=== PATIENT | male | born 1930 | race Caucasian/White ===

== ENCOUNTER 2018-04-14 00:28 | Observation (INO) ==
[2018-04-14 07:12] LABS: Basophils % 0.5 %; Eosinophils # 0.4 K/mcL (0.0-0.6); Eosinophils % 4.2 %; Hematocrit 33.8 % (37.5-50.1); Hemoglobin 11.7 g/dL (12.9-16.9); Immature Granulocytes % 0.2 % (0-4); Lymphocytes # 1.9 K/mcL (0.6-4.6); Lymphocytes % 22.7 %; Mean Corpuscular HGB Conc 34.6 g/dL (31.6-35.5); Mean Corpuscular Hemoglobin 31.6 pg (28.0-33.3); Mean Corpuscular Volume 91.4 fL (83.0-100.0); Mean Platelet Volume 9.7 fL (9.4-12.4); Monocytes # 0.9 K/mcL (0.0-1.3); Monocytes % 10.6 %; Neutrophils # 5.3 K/mcL (1.6-8.9); Platelet Count 156 K/mcL (140-400); Red Cell Distribution Width 12.3 % (11.5-14.5); Segmented Neutrophils % 61.8 %
[2018-04-14 07:21] LABS: BUN/Creatinine Ratio 17 (6-26); Blood Urea Nitrogen 15 mg/dL (8-23); Carbon Dioxide 30 mEq/L (23-29); Chloride 103 mEq/L (98-107); Glucose 110 mg/dL (70-105); Osmolality,Calculated 287 (280-300); Potassium 3.4 mEq/L (3.5-5.1); Sodium 138 mEq/L (136-145); eGFR For Non-African Americans > 60 (> 60)
[2018-04-14] MEDS ORDERED: Naloxone 0.4 MG/ML INJ IVP PRN (08:04)
--- NOTE | 2018-04-14 08:16 | Internal Med History&Physical ---
Date of Encounter: 04/14/18 Time of Encounter: 08:08 Internal Medicine - H&P: HPI Chief complaint: Lt flank pain Admitted From: Home Plans for Post Hospital Care: Home History of present illness: Mr. Werner is a 87 year old male with past medical history of hypertension, hyperlipidemia, nephrolithiasis, CVA with right-sided weakness 5 years ago came in with complaint of left-sided flank pain starting yesterday morning. Pain was severe intensity started suddenly described as 10 x 10 in intensity and most severe pain he ever had. He went to ER had Leonel and cause found to have left UVJ 2 mm stone as well as some free air in the abdomen. He received IV fluids and pain medication after which his pain resolved. He did feel that he might have passed stone and the pain has not recurred. He received about 500 mL of fluids as well as pain medication per . Patient was transferred for further care with urology and evaluate evaluate free air. On interview this morning patient without any pain. Currently only mild soreness on the left side where he had pain. He did not feel the pain coming from the flank to his groin region and now the pain has resolved. Denies any fever or chills, nausea vomiting or maisha hematuria. He has had 2 episodes of kidney stone in past. Denies any chest pain, shortness of breath, leg swelling, constipation or diarrhea or difficulty passing urine. He does have a bowel m ovement every 2-3 days at his baseline with the last bowel movement on Thursday. Past Med Surg Social Fam HX - Past Medical History Medical history: arthritis, CVA, GERD, hyperlipidemia, hypertension, kidney stones Psychiatric history: no psych history - Past Surgical History Surgical History: carotid endarterectomy, herniorrhaphy - Social History Smoking Status: Never smoker Smokeless Tobacco Status: No Alcohol use: none Drug use: opiates - Additional Family History Additional family history: No significant family history in parent and in sibling. Internal Medicine - H&P: Meds Amlodipine Besylate 5 mg PO DAILY 04/14/18 [History] Aspirin 81 mg PO DAILY 04/14/18 [History] Clopidogrel [Plavix] 75 mg PO DAILY 04/14/18 [History] Cyanocobalamin (Vitamin B-12) [Vitamin B12] 500 mcg PO DAILY 04/14/18 [History] Famotidine [Pepcid] 20 mg PO BID 04/14/18 [History] Meloxicam 15 mg PO DAILY 04/14/18 [History] Occuvite 1 tab PO DAILY 04/14/18 [History] Oxycodone HCl/Acetaminophen [Percocet 10-325 mg Tablet] 1 tab PO BID 04/14/18 [History] Rosuvastatin Calcium [Crestor] 10 mg PO DAILY 04/14/18 [History] Allergy/AdvReac Type Severity Reaction Status Date / Time No Known Allergies Allergy Verified 04/14/18 02:32 All Systems PM: A 10-system review of systems was performed and is negative for pertinent findin gs except as documented above in the HPI. - Constitutional Vitals: Temp Pulse Resp BP Pulse Ox 98.8 F 70 16 141/74 93 04/14/18 07:35 04/14/18 07:35 04/14/18 07:35 04/14/18 07:35 04/14/18 07:35 Exam: Constitutional: Vitals as noted. Conversant. No Apparent Distress. Eyes : Sclera white, conjunctiva clear, no lid lag, PEARLA. ENT : Grossly normal hearing. Oropharyngeal exam unremarkable. Moist mucus membranes. No JVD, no cervical lymphadenopathy. no thyromegaly or mass. Respiratory : Clear to auscultation bilaterally. No accessory muscle use, rales, rhonchi or wheezes Cardiovascular : RRR, +S1, +S2. no murmur, gallop, rubs. No chest wall tenderness. pulses palpable and symmetrical in UE/LE. GI/Abdominal : Soft, minimal tenderness on LUQ, Non-distended, normal bowel sounds, soft, no peritoneal signs. no orgenomegaly or mass appreciated. no hernia. Musculoskeletal: no deformity noted. no edema or cyanosis. warm extremities, no calf tenderness. Neurological: AO X3, CN II-XII grossly intact, Minimal weakness on Rt compared to Lt UE/LE. Skin: No skin rash, lesions or ulcers noted. Pych: Good insight and judgement. Intact memory. AOx3. Internal Med - H&P Results - Labs CBC & Chem 7: 04/14/18 06:51 04/14/18 06:51 Labs: Short CBC 04/14/18 Range/Units 06:51 WBC 8.6 (4.3-11.1) K/mcL Hgb 11.7 L (12.9-16.9) g/dL Hct 33.8 L (37.5-50.1) % Plt Count 156 (140-400) K/mcL Neutrophils # 5.3 (1.6-8.9) K/mcL BMP 04/14/18 06:51 Sodium 138 Potassium 3.4 L Chloride 103 Carbon Dioxide 30 H BUN 15 Creatinine 0.90 Glucose 110 H Calcium 9.0 - Assessment and plan (1) Nephrolithiasis Current Visit: Yes Status: Acute Assessment and plan: 2 mm left UVJ stone on the CAT scan - Patient appears clinically to have passed a stone - Continue IV fluids and pain control - Creatinine trended down from 1.38 to 0.9 - We will follow-up CT ordered for evaluating free air whether stone is still present. - Urology consulted. (2) HTN (hypertension) Current Visit: Yes Status: Acute Assessment and plan: - Currently reasonably controlled - We will resume home medications once able to take by mouth. - If needed will give IV labetalol for sbp >160. Qualifiers: Hypertension type: essential hypertension Qualified Code(s): I10 - Essential (primary) hypertension (3) History of CVA (cerebrovascular accident) Current Visit: Yes Status: Chronic (4) Hyperlipemia Current Visit: Yes Status: Acute Assessment and plan: - Continue home statin when able to Qualifiers: Hyperlipidemia type: unspecified Qualified Code(s): E78.5 - Hyperlipidemia, unspecified (5) Free intraperitoneal air Current Visit: Yes Status: Acute Assessment and plan: - Clinically patient's abdomen is benign with only minimal tenderness on deep palpation - We will repeat CT with oral contrast to follow-up - Keep nothing by mouth for now - Surgery consulted - Time Spent With Patient Total time spent is greater than 50% in coordination of care (as documented) at patient's floor/unit and/or counseling patient:
[2018-04-14] MEDS ORDERED: *HR* Labetalol 20 MG/4 ML SYRINGE IVP PRN (08:31)
--- NOTE | 2018-04-14 08:38 | Urology - Consult Note ---
Addendum entered and electronically signed by Ankush Lai MD 04/14/18 16:18: Patient seen and examined with the physician's computer lab assistant. He has a 2 mm distal left ureteral stone as well as a 7-8 mm left renal stone. He is not having much in the way of flank pain at this time. There was some concern for possible free air within the abdomen. Gen. surgery consultation is pending. His abdominal exam is benign. Given the size of the stone, it is likely that he will build up past this. I would recommend conservative management with tamsulosin. If his pain worsens, we can proceed with ureteroscopic stone extraction. But again, a 2 mm stone has a high likelihood of passing without surgical intervention. Urology will follow along. Original Note: Date of Encounter: 04/14/18 Time of Encounter: 08:10 - Assessment and Plan (1) Ureteral calculus, left Current Visit: Yes Status: Acute Assessment and plan: Patient is an 87-year-old male who presents with the history of a 2 mm left UVJ stone. Clinically, the patient appears as if he may have already passed the stone into the bladder. There is question regarding prior CT scan of free intraperitoneal air. General surgery has been consulted, and abdomen and pelvis CT with oral contrast will be repeated. Urology will continue to follow along. Urology CN:HPI Consult date: 04/14/18 Reason for consult Urology: Other (left 2mm UVJ stone) History of present illness: Patient is an 87-year-old male who presents with a history of left flank pain worsening in intensity. Patient states pain began at approximately 3:00 yesterday afternoon. Patient decided to go to [facility] emergency department for further evaluation. [facility] performed a CT scan of the abdomen and pelvis revealing a left 2 mm UVJ stone as well as free air. Patient was subsequently transferred to [facility] for both surgical and urologic in tervention. On examination, patient states abdominal pain has resolved. Patient admits to a long-standing history of renal stones, with his last renal stone being approximately 3 years ago and passed with medical expulsion. Patient denies ever undergoing any urologic surgery or procedure for stone extraction. Patient denies a known family history of renal stones. Patient currently denies abdominal pain, nausea, vomiting, chills, fever, flank pain, gross hematuria, or hematochezia. Past Med Surg Social Fam HX - Past Medical History Medical history: arthritis, CVA, GERD, hyperlipidemia, hypertension, kidney stones Psychiatric history: no psych history - Past Surgical History Surgical History: carotid endarterectomy, herniorrhaphy - Social History Smoking Status: Never smoker Smokeless Tobacco Status: No Alcohol use: none Drug use: opiates Medications and Allergies Amlodipine Besylate 5 mg PO DAILY 04/14/18 [History] Aspirin 81 mg PO DAILY 04/14/18 [History] Clopidogrel [Plavix] 75 mg PO DAILY 04/14/18 [History] Cyanocobalamin (Vitamin B-12) [Vitamin B12] 500 mcg PO DAILY 04/14/18 [History] Famotidine [Pepcid] 20 mg PO BID 04/14/18 [History] Meloxicam 15 mg PO DAILY 04/14/18 [History] Occuvite 1 tab PO DAILY 04/14/18 [History] Oxycodone HCl/Acetaminophen [Percocet 10-325 mg Tablet] 1 tab PO BID 04/14/18 [History] Rosuvastatin Calcium [Crestor] 10 mg PO DAILY 04/14/18 [History] Allergy/AdvReac Type Severity Reaction Status Date / Time No Known Allergies Allergy Verified 04/14/18 02:32 Review of Systems - Constitutional no chills, no fatigue, no fever(s) - EENT Nose, mouth and throat: no dizziness, no headache(s), no sore throat - Cardiovascular no chest pain, no diaphoresis, no dyspnea - Respiratory no cough, no dyspnea - Gastrointestinal no abdominal pain, no change in bowel habits, no nausea, no vomiting - Genitourinary no difficulty urinating, no dysuria, no flank pain, no hematuria, no urinary frequency, no urinary hesitancy, no urinary urgency - Musculoskeletal no back pain, no muscle weakness - Integumentary no erythema, no swelling - Psychiatric no anxiety, no confusion - Hematologic/Lymphatic no easy bleeding, no easy bruising - Allergic/Immunologic no throat swelling, no wheezing Exam Initial Vital Signs Temp Pulse Resp BP Pulse Ox 97.7 F 102 14 195/97 96 04/14/18 01:42 04/14/18 01:42 04/14/18 01:42 04/14/18 01:42 04/14/18 01:42 - General physical appearance Present: well developed, no distress, no pain - Eyes Present: PERRL, normal ocular movement - ENT Present: normal nares, normal mucosa, no congestion. Absent: no hearing loss - Neck Present: no masses, trachea midline - Respiratory Present: normal respiratory effort - Cardiovascular Cardiovascular exam IM: RRR - Abdomen Abdomen: Present: soft, non tender. Absent: guarding, rigid - Genitourinary other (no CVAT) - Integumentary Present: no rash, no abnormal pigmentation - Neurologic Present: normal coordination - Musculoskeletal Present: other (normal posture ) Urology Results - Labs 04/14/18 06:51 04/14/18 06:51 Abnormal lab results RBC 3.70 M/mcL (4.19-5.50) L 04/14/18 06:51 Hgb 11.7 g/dL (12.9-16.9) L 04/14/18 06:51 Hct 33.8 % (37.5-50.1) L 04/14/18 06:51 Potassium 3.4 mEq/L (3.5-5.1) L 04/14/18 06:51 Carbon Dioxide 30 mEq/L (23-29) H 04/14/18 06:51 Glucose 110 mg/dL (70-105) H 04/14/18 06:51 Diabetes panel 04/14/18 Range/Units 06:51 Sodium 138 (136-145) mEq/L Potassium 3.4 L (3.5-5.1) mEq/L Chloride 103 (98-107) mEq/L Carbon Dioxide 30 H (23-29) mEq/L BUN 15 (8-23) mg/dL Creatinine 0.90 (0.70-1.30) mg/dL Glucose 110 H (70-105) mg/dL Calcium 9.0 (8.6-10.3) mg/dL Calcium panel 04/14/18 Range/Units 06:51 Calcium 9.0 (8.6-10.3) mg/dL Pituitary panel 04/14/18 Range/Units 06:51 Sodium 138 (136-145) mEq/L Potassium 3.4 L (3.5-5.1) mEq/L Chloride 103 (98-107) mEq/L Carbon Dioxide 30 H (23-29) mEq/L BUN 15 (8-23) mg/dL Creatinine 0.90 (0.70-1.30) mg/dL Glucose 110 H (70-105) mg/dL Calcium 9.0 (8.6-10.3) mg/dL Adrenal panel 04/14/18 Range/Units 06:51 Sodium 138 (136-145) mEq/L Potassium 3.4 L (3.5-5.1) mEq/L Chloride 103 (98-107) mEq/L Carbon Dioxide 30 H (23-29) mEq/L BUN 15 (8-23) mg/dL Creatinine 0.90 (0.70-1.30) mg/dL Glucose 110 H (70-105) mg/dL Calcium 9.0 (8.6-10.3) mg/dL All other labs normal. - Imaging CT scan - abdomen: report reviewed CT scan - pelvis: report reviewed Consult Discharge Plan - Plan Referrals: NONE,PCP [Primary Care Provider] -
[2018-04-14] MEDS ORDERED: Isovue-370 500 ML INFUS..BTL PO ONE (10:37)
[2018-04-14] MEDS: D5% in 0.45% NACL 1,000 ML IVC SCH ×2 (11:15→23:34)
--- NOTE | 2018-04-14 18:28 | General Surgery Consult Note ---
Date of Encounter: 04/14/18 Time of Encounter: 17:45 History of Present Illness Consult date: 04/14/18 Requesting physician: Nam Oleary History of present illness: Called to see patient regarding an abnormal CT initially completed at [facility]. This is an 87-year-old male with a past medical history of hypertension hyperlipidemia and prior stroke with residual right-sided weakness for the past 5 years. He apparently presented to [facility] with left-sided flank pain which they have the patient thought was a recurrent kidney stone. The patient describes pain in the right flank more to his previous episodes of nephro or ureteral lithiasis. CT of the abdomen and pelvis demonstrated a 2 mm UVJ stone along with multiple small collections of free air in the abdomen. This prompted transfer to [facility]. [facility] was consulted along with surgical services. Medical records from the ED indicates that a surgical consultation was placed this morning at 0630 hrs. I was consult at approximately 0900 hrs. regarding this patient and the intraperitoneal air. CT abdomen and pelvis was repeated. I was able to review those films with [facility]. I was able to present to bedside to examine the patient several hours later. During that time the patient remained afebrile and hemodynamically stable. The patient describes left flank pain which was characterized as sufficiently severe to present to the [facility] for further evaluation and treatment. The patient was evaluated and given pain medication with resolution of his pain without recurrence since. Past medical history: Arthritis, stroke, hyperlipidemia, hypertension, and a long-standing history of recurrent renal stones. Chronic back pain Surgical history: The patient indicates his only surgery was a right inguinal herniorrhaphy completed and the role past without evidence of recurrent hernia. Medical records indicate a carotid endarterectomy Allergies: No known drug allergies Medications: The patient admits to [facility] 52 a tablet once or twice daily Medical records indicate additional medications which include: Amlodipine 5 mg by mouth daily Clopidogrel 75 mg by mouth daily Cyanocobalamin (vitamin B12) 500 g by mouth daily Famotidine 20 mg by mouth twice a day Meloxicam 15 mg by mouth daily Ocuvite 1 by mouth daily Rosuvastatin 10 mg by mouth daily Social history: The patient has never smoked, he does not consume alcohol or use illicit drugs. The patient denies any recurrent abdominal pain, no nausea or vomiting. He has remained afebrile and is currently 98.8, pulse 72, respirations 18, blood pressure 133/66. The patient appears to be age-appropriate in no acute distress skin is warm, without obvious jaundice Lungs are clear to auscultation; there was no abdominal pain with deep inspiration Cardiac: Rate was regular Abdomen was soft, nontender. There was no elicited rebound. There was no flank pain to percussion Bowel sounds were active. Impression: 87-year-old male transferred from [facility] after presenting there with new onset severe left sided flank pain. CT of the abdomen and pelvis is notable for a 2 mm UVJ stone as well as multiple cortical stones without obvious obstruction. Mild left hydronephrosis and left hydrocele was seen to the level of the urinary bladder but. Urologic evaluation that stone may have passed into the bladder. There are scattered tiny bubbles of free air within the lower mediastinum and both to the right and left of the distal esophagus. A small hiatal hernia is present. Incidental notation of gallstones as described without wall thickening or ductal dilatation. A greater amount of the small amount of intraperitoneal air is located around the splenic flexure. This may explain the patient's recent symptoms for which he initially presented to [facility]. The patient is completely asymptomatic to my examination. Treatment options include exploratory celiotomy in an attempt to identify the source of the free air versus continued expectant follow-up. The patient certainly does not wish to consider surgery unless he becomes significantly more symptomatic. The patient's daughter was at bedside during my examination and subsequent discussion. Treatment plan: Allow clear liquids Monitor closely for recurrent pain or peritoneal signs. Repeat labs in a.m. including CBC. Past Med Surg Social Fam HX - Past Medical History Medical history: arthritis, CVA, GERD, hyperlipidemia, hypertension, kidney stones Psychiatric history: no psych history - Past Surgical History Surgical History: carotid endarterectomy, herniorrhaphy - Social History Smoking Status: Never smoker Smokeless Tobacco Status: No Alcohol use: none Drug use: opiates Medications and Allergies Aspirin [Lo-Dose Aspirin EC] 81 mg PO DAILY 04/14/18 [History] C,E,Zinc,Copper 11/Rlxts3m/Lut [Ocuvite Adult 50 Plus Softgel] 1 cap PO DAILY 04/14/18 [History] Clopidogrel [Plavix] 75 mg PO DAILY 04/14/18 [History] Cyanocobalamin (Vitamin B-12) [Vitamin B12] 500 mcg PO DAILY 04/14/18 [History] Famotidine [Pepcid] 20 mg PO BID 04/14/18 [History] Gabapentin [Neurontin] 300 mg PO HS 04/14/18 [History] Levothyroxine Sodium 25 mcg PO DAILY 04/14/18 [History] Oxycodone HCl/Acetaminophen [Percocet 10-325 mg Tablet] 1 tab PO BID PRN 04/14/18 [History] Pantoprazole Sodium [Protonix] 20 mg PO DAILY 04/14/18 [History] Rosuvastatin Calcium [Crestor] 10 mg PO DAILY 04/14/18 [History] amLODIPine [Norvasc] 5 mg PO DAILY 04/14/18 [History] Allergy/AdvReac Type Severity Reaction Status Date / Time No Known Allergies Allergy Verified 04/14/18 02:32 Review of Systems All systems PM: The remainder of the systems were reviewed and are negative General Surgery Exam Initial Vital Signs Temp Pulse Resp BP Pulse Ox 97.7 F 102 14 195/97 96 04/14/18 01:42 04/14/18 01:42 04/14/18 01:42 04/14/18 01:42 04/14/18 01:42 Exam Initial Vital Signs Temp Pulse Resp BP Pulse Ox 97.7 F 102 14 195/97 96 04/14/18 01:42 04/14/18 01:42 04/14/18 01:42 04/14/18 01:42 04/14/18 01:42 Results - Labs 04/14/18 06:51 04/14/18 06:51 Abnormal lab results RBC 3.70 M/mcL (4.19-5.50) L 04/14/18 06:51 Hgb 11.7 g/dL (12.9-16.9) L 04/14/18 06:51 Hct 33.8 % (37.5-50.1) L 04/14/18 06:51 Potassium 3.4 mEq/L (3.5-5.1) L 04/14/18 06:51 Carbon Dioxide 30 mEq/L (23-29) H 04/14/18 06:51 Glucose 110 mg/dL (70-105) H 04/14/18 06:51 POC Glucose 134 mg/dL (70-99) H 04/14/18 12:12 Diabetes panel 04/14/18 Range/Units 06:51 Sodium 138 (136-145) mEq/L Potassium 3.4 L (3.5-5.1) mEq/L Chloride 103 (98-107) mEq/L Carbon Dioxide 30 H (23-29) mEq/L BUN 15 (8-23) mg/dL Creatinine 0.90 (0.70-1.30) mg/dL Glucose 110 H (70-105) mg/dL Calcium 9.0 (8.6-10.3) mg/dL Calcium panel 04/14/18 Range/Units 06:51 Calcium 9.0 (8.6-10.3) mg/dL Pituitary panel 04/14/18 Range/Units 06:51 Sodium 138 (136-145) mEq/L Potassium 3.4 L (3.5-5.1) mEq/L Chloride 103 (98-107) mEq/L Carbon Dioxide 30 H (23-29) mEq/L BUN 15 (8-23) mg/dL Creatinine 0.90 (0.70-1.30) mg/dL Glucose 110 H (70-105) mg/dL Calcium 9.0 (8.6-10.3) mg/dL Adrenal panel 04/14/18 Range/Units 06:51 Sodium 138 (136-145) mEq/L Potassium 3.4 L (3.5-5.1) mEq/L Chloride 103 (98-107) mEq/L Carbon Dioxide 30 H (23-29) mEq/L BUN 15 (8-23) mg/dL Creatinine 0.90 (0.70-1.30) mg/dL Glucose 110 H (70-105) mg/dL Calcium 9.0 (8.6-10.3) mg/dL All other labs normal. Consult Discharge Plan - Plan Referrals: Gabino Combs MD [Non-Partnered Physician] -
[2018-04-15 04:40] LABS: Basophils % 0.4 %; Eosinophils # 0.4 K/mcL (0.0-0.6); Eosinophils % 4.7 %; Hematocrit 33.3 % (37.5-50.1); Hemoglobin 11.4 g/dL (12.9-16.9); Immature Granulocytes % 0.1 % (0-4); Lymphocytes # 1.6 K/mcL (0.6-4.6); Lymphocytes % 21.1 %; Mean Corpuscular HGB Conc 34.2 g/dL (31.6-35.5); Mean Corpuscular Hemoglobin 31.2 pg (28.0-33.3); Mean Corpuscular Volume 91.2 fL (83.0-100.0); Mean Platelet Volume 9.8 fL (9.4-12.4); Monocytes # 0.8 K/mcL (0.0-1.3); Monocytes % 10.2 %; Neutrophils # 4.8 K/mcL (1.6-8.9); Platelet Count 152 K/mcL (140-400); Red Blood Count 3.65 M/mcL (4.19-5.50); Red Cell Distribution Width 12.3 % (11.5-14.5); Segmented Neutrophils % 63.5 %
[2018-04-15 05:00] LABS: BUN/Creatinine Ratio 15 (6-26); Blood Urea Nitrogen 11 mg/dL (8-23); Calcium 8.9 mg/dL (8.6-10.3); Carbon Dioxide 25 mEq/L (23-29); Chloride 105 mEq/L (98-107); Glucose 135 mg/dL (70-105); Osmolality,Calculated 291 (280-300); Potassium 3.5 mEq/L (3.5-5.1); Sodium 140 mEq/L (136-145); eGFR For Non-African Americans > 60 (> 60)
[2018-04-15] MEDS ORDERED: Levothyroxine 25 MCG TABLET PO SCH (08:15)
--- NOTE | 2018-04-15 08:39 | Urology Progress Note ---
Addendum entered and electronically signed by Ankush Lai MD 04/15/18 12:34: Patient was seen and examined with the physician's commercial loan assistant. Agree with assessment and plan. He will likely pass this distal left ureteral stone. I am okay with discharge from a urology standpoint. Awaiting final recommendations from general surgery. I would have him return in 2 weeks for a checkup in the clinic and possible repeat CT scan in 3-4 weeks. Original Note: Date of Encounter: 04/15/18 Time of Encounter: 08:05 - Assessment and Plan (1) Ureteral calculus, left Current Visit: Yes Status: Acute Assessment and plan: Patient is an 87-year-old male with a 2mm left distal ureteral stone and 7-8mm left renal stone. Urine is being strained. Vital signs are currently stable and afebrile. White blood cell count is reassuring. Discussed high probability of ureteral stone passage with medical expulsion. Will continue to follow. Progress Note Subjective: no new complaints, feels better Narrative: Patient seen and examined standing in room in no apparent distress. Patient is hard of hearing, therefore his is answering most questions. Patient's reports he is feeling better. Pain is well-controlled. Patient is voiding without difficulty. Patient is tolerating full liquids without nausea or vomiting. No flatus or bowel movement per patient's . Denies fever, chills, gross hematuria, hematochezia, flank pain, abdominal pain. Objective Initial Vital Signs Temp Pulse Resp BP Pulse Ox 97.7 F 102 14 195/97 96 04/14/18 01:42 04/14/18 01:42 04/14/18 01:42 04/14/18 01:42 04/14/18 01:42 - General physical appearance Present: no distress, no pain - Respiratory Present: normal expansion, normal respiratory effort - Abdomen Present: soft, non tender - Integumentary Present: no rash, no abnormal pigmentation - Musculoskeletal Present: normal gait, normal posture - Psychiatric Present: oriented to time, oriented to person, oriented to place - Labs 04/15/18 04:08 04/15/18 04:08 Diabetes panel 04/15/18 Range/Units 04:08 Sodium 140 (136-145) mEq/L Potassium 3.5 (3.5-5.1) mEq/L Chloride 105 (98-107) mEq/L Carbon Dioxide 25 (23-29) mEq/L BUN 11 (8-23) mg/dL Creatinine 0.75 (0.70-1.30) mg/dL Glucose 135 H (70-105) mg/dL Calcium 8.9 (8.6-10.3) mg/dL Calcium panel 04/15/18 Range/Units 04:08 Calcium 8.9 (8.6-10.3) mg/dL Pituitary panel 04/15/18 Range/Units 04:08 Sodium 140 (136-145) mEq/L Potassium 3.5 (3.5-5.1) mEq/L Chloride 105 (98-107) mEq/L Carbon Dioxide 25 (23-29) mEq/L BUN 11 (8-23) mg/dL Creatinine 0.75 (0.70-1.30) mg/dL Glucose 135 H (70-105) mg/dL Calcium 8.9 (8.6-10.3) mg/dL Adrenal panel 04/15/18 Range/Units 04:08 Sodium 140 (136-145) mEq/L Potassium 3.5 (3.5-5.1) mEq/L Chloride 105 (98-107) mEq/L Carbon Dioxide 25 (23-29) mEq/L BUN 11 (8-23) mg/dL Creatinine 0.75 (0.70-1.30) mg/dL Glucose 135 H (70-105) mg/dL Calcium 8.9 (8.6-10.3) mg/dL Consult Discharge Plan - Plan Referrals: Gabino Combs MD [Non-Partnered Physician] -
[2018-04-15] MEDS ORDERED: Famotidine 20 MG TABLET PO SCH (09:00)
[2018-04-15] MEDS ORDERED: amLODIPine 5 MG TABLET PO SCH (09:00)
[2018-04-15] MEDS ORDERED: Aspirin Enteric Coated 81 MG Tablet PO SCH (09:00)
[2018-04-15 14:36] VITALS: BP 108/61
--- NOTE | 2018-04-15 15:11 | Discharge Summary ---
- NOTES TO OUTPATIENT PROVIDER Notes to Outpatient Provider: Will need urology and surgery follow-up in 1-[address] weeks[address] We [address] need CT follow-up with urology. Date of Encounter: 04/15/18 Time of Encounter: 14:30 - Discharge Diagnosis (1) Nephrolithiasis Priority: Primary Status: Acute (2) HTN (hypertension) Priority: Secondary Status: Acute Qualifiers: Hypertension type: essential hypertension Qualified Code(s): I10 - Essential (primary) hypertension (3) History of CVA (cerebrovascular accident) Priority: Secondary Status: Chronic (4) Hyperlipemia Priority: Secondary Status: Acute Qualifiers: Hyperlipidemia type: unspecified Qualified Code(s): E78.5 - Hyperlipidemia, unspecified (5) Free intraperitoneal air Priority: Primary Status: Acute Hospital course: Mr. Werner is a 87 year old male with past medical history of hypertension, hyperlipidemia, nephrolithiasis, CVA who presented with left flank pain to [facility]. He was found to have free air in the abdomen as well as 2 mm stone with hydronephrosis and MYNOR. Patient was transferred to [facility]. By the time patient was at [facility] his symptomatology resolved and he thought he passed a stone. Urology and surgery were consulted. Repeat CT was obtained with oral contrast. He is kidney function was back to normal. Repeat CT showed presence of 2 mm stone at left distal ureter and nephrolithiasis. He also demonstrated free air as noted at the other hospital with possibility of bowel perforation. However patient without any signs of acute abdomen and was tolerating diet which was gradually progressed without any nausea vomiting abdominal pain fevers chills or diarrhea. Patient was stable during his stay and no further intervention was planned by surgery and the clear for discharge to be followed as outpatient in 1-2 weeks. Discussed with patient about signs and symptoms which should make him to come to ER. Patient's meloxicam was also stopped. At the time of discharge patient without any pain. Tamsulosin prescription for 15 days so was sent to his pharmacy. - Time Spent with Patient Total time spent providing and/or coordinating discharge services: Greater than 30 minutes (40) - Discharge Medications Prescriptions: Tamsulosin [Flomax] 0.4 mg PO DAILY 15 Days #15 capsule Home Medications: Aspirin [Lo-Dose Aspirin EC] 81 mg PO DAILY 04/14/18 [History] C,E,Zinc,Copper 11/Nylqn1c/Lut [Ocuvite Adult 50 Plus Softgel] 1 cap PO DAILY 04/14/18 [History] Clopidogrel [Plavix] 75 mg PO DAILY 04/14/18 [History] Cyanocobalamin (Vitamin B-12) [Vitamin B12] 500 mcg PO DAILY 04/14/18 [History] Famotidine [Pepcid] 20 mg PO BID 04/14/18 [History] Gabapentin [Neurontin] 300 mg PO HS 04/14/18 [History] Levothyroxine Sodium 25 mcg PO DAILY 04/14/18 [History] Oxycodone HCl/Acetaminophen [Percocet 10-325 mg Tablet] 1 tab PO BID PRN 04/14/18 [History] Pantoprazole Sodium [Protonix] 20 mg PO DAILY 04/14/18 [History] Rosuvastatin Calcium [Crestor] 10 mg PO DAILY 04/14/18 [History] amLODIPine [Norvasc] 5 mg PO DAILY 04/14/18 [History] Tamsulosin [Flomax] 0.4 mg PO DAILY 15 Days #15 capsule 04/15/18 [Rx] Allergies/Adverse Reactions: Allergy/AdvReac Type Severity Reaction Status Date / Time No Known Allergies Allergy Verified 04/14/18 02:32 Date of admission: 04/14/18 01:31 Primary care physician: PCP NONE Consults: 04/14/18 06:32 Consult to Surgery [CONS] Routine Consulting Provider: Jose Domingo Reason for Consult: obstructing stone 2mm Call Completed: No Consult to Urology [CONS] Routine Consulting Provider: [facility] Reason for Consult: 2mm obstructing stone Call Completed: No 04/14/18 13:56 Consult to Surgery [CONS] Routine Consulting Provider: [facility] Reason for Consult: obstructing stone 2mm Call Completed: Yes Discharging clinician: Nam Oleary - Constitutional Vitals: Temp Pulse Resp BP Pulse Ox 98.1 F 80 17 108/61 95 04/15/18 14:32 04/15/18 14:32 04/15/18 14:32 04/15/18 14:32 04/15/18 14:32 Exam: Constitutional: Vitals as noted. Conversant. No Apparent Distress. Respiratory : Clear to auscultation bilaterally. No accessory muscle use, rales, rhonchi or wheezes Cardiovascular : RRR, +S1, +S2. no murmur, gallop, rubs. No chest wall tenderness. pulses palpable and symmetrical in UE/LE. GI/Abdominal : Soft, minimal tenderness on LUQ, Non-distended, normal bowel sounds, soft, no peritoneal signs. no orgenomegaly or mass appreciated. no hernia. Musculoskeletal: no deformity noted. no edema or cyanosis. warm extremities, no calf tenderness. Neurological: AO X3, CN II-XII grossly intact, Minimal weakness on Rt compared to Lt UE/LE. Skin: No skin rash, lesions or ulcers noted. Pych: Good insight and judgement. Intact memory. AOx3. - Patient Status Disposition: Home, Self-Care Condition: Good - Discharge Instructions Follow Up With: Hermann Zamora MD [Non-Partnered Physician] - 04/22/18 2:50 pm - Diet and Activity Activity: resume usual activities as tolerated
[2018-04-15] MEDS ORDERED: Gabapentin 300 MG CAPSULE PO SCH (21:00)
== END 2018-04-15 15:47 | disposition home or self-care (01) ==
LOC: 3ANU → SUATTDRO 01:31
PROVIDERS: ADMIT Family Medicine; ATTEND Internal Medicine